=== PATIENT | female | born 1960 | race Two or more races ===

== ENCOUNTER 2016-11-23 16:10 | Emergency (ER) | payer MEDICARE, MEDICAID ==
[~2016-11-23 16:10] MED LIST: ATACAND HCT GT; BENICAR HCT 201 EACH PO; BENICAR20 MG PO; CLOBETASOL 0.0560 GM TP; CORRECTOL5 M2 PO; CYCLOBENZAPRINE10 M1 PO; CYCLOBENZAPRINE5 M1 PO; DIAZEPAM10 MG PO; EYE DROPS15 M3 OP; FLOVENT HFA1 PUF1 INH; GLIPIZIDE10 M2 PO; GLIPIZIDE5 MG PO; GLUCOTROL XL10 M1 PO; GUAIFEN-CODEIN120 ML PO; MELATONIN3 M4 PO; PERCOCET 5MG/AP1 TAB PO; PRILOSEC20 M1 PO; PROTONIX40 MG PO; Q VAR; SIMVASTATIN40 MG PO; SINGULAIR10 MG PO; TAMIFLU75 MG/CAP NG; TRADJENTA5 M1 PO; TRAMADOL HCL50 M2 PO; ULTRAM50 M1 PO; VITAMIN D400 UNI3 PO; VITAMIN D400 UNI4 PO; XELJANZ5 MG PO; ZANTAC150 MG PO; ZITHROMAX250 M1 PO
[2016-11-23] MEDS ORDERED: HYDROCODON-ACE1 EA16 PO (17:57)
[2017-04-27] MEDS ORDERED: VENTOLIN HFA18 G2 PO (00:35)
[2017-04-27] MEDS ORDERED: TRAMADOL HCL50 M2 PO (01:13)
[2017-04-29] MEDS ORDERED: NORCO 5-325 TA1 EACH PO (00:46)
[2017-05-15] MEDS ORDERED: GUAIFENESIN-COD10 ML PO (20:46)
[2017-05-15] MEDS ORDERED: ZOFRAN4 M2 PO (20:50)
[2017-06-09] MEDS ORDERED: NORCO 5/3251 TAB PO (00:11)
== END 2016-11-23 18:12 ==
LOC: EDMED 16:10
PROC: 2W3CXYZ Immobilization of Right Lower Arm using Other Device (ICD-10-PCS; principal; 2016-11-23)
DX: S46.911A Strain of unspecified muscle, fascia and tendon at shoulder and upper arm level, right arm, initial encounter (principal); S66.911A Strain of unspecified muscle, fascia and tendon at wrist and hand level, right hand, initial encounter; S39.012A Strain of muscle, fascia and tendon of lower back, initial encounter; S70.01XA Contusion of right hip, initial encounter; M06.9 Rheumatoid arthritis, unspecified; W17.89XA Other fall from one level to another, initial encounter; Y92.481 Parking lot as the place of occurrence of the external cause

== ENCOUNTER 2016-12-28 00:32 | Observation (INO) | payer MEDICARE, MEDICAID ==
[~2016-12-28 00:32] MED LIST changes: +HYDROCODON-ACE1 EA16 PO
[2016-12-28] MEDS ORDERED: PULMICORT FLEX90 MCG INH (00:48)
[2016-12-28] MEDS ORDERED: ORPHENADRINE C100 M1 PO (00:50)
[2016-12-28] MEDS ORDERED: OMEPRAZOLE20 M3 PO (00:50)
[2016-12-28 01:45] LABS: BASO % 0.2 % (0-2); EOS % 1.6 % (0-7); EOSINOPHIL ABSOLUTE COUNT 0.2 tho/cmm (0.0-0.7); HCT-HEMATOCRIT 35.3 % (34.0-49.0); HGB-HEMOGLOBIN 11.3 gm/dl (12.0-15.5); IMMATURE GRANULOCYTES ABSOLUTE 0.05 tho/cmm (0-0.03); IMMATURE GRANULOCYTES PERCENT 0.5 % (0-0.3); LYMPH % 27.7 % (20-45); MCH (MEAN CORPUSCULAR HGB) 26.4 pg (28.0-32.0); MCV (MEAN CELL VOLUME) 82.5 fl (82.0-96.0); MEAN PLATELET VOLUME 9.4 cmc (9.4-12.4); MONO % 4.7 % (0-12); MONOCYTE ABSOLUTE COUNT 0.5 tho/cmm (0.0-1.2); NEUTROPHIL ABSOLUTE COUNT 7.1 tho/cmm (1.6-8.0); NEUTROPHIL-AUTOMATED 7.1 tho/cmm (1.6-8.0); NEUTROPHILS % 65.3 % (40-80); PLATELET COUNT 297 tho/cmm (150-450); RED BLOOD COUNT 4.28 mil/cmm (4.00-5.20); RED CELL DISTRIBUTION WIDTH 14.1 % (12.4-16.4); WHITE BLOOD COUNT 10.8 tho/cmm (4.0-10.0)
[2016-12-28 02:01] LABS: ALB/GLOB RATIO 0.8 (0.8-2.0); ALBUMIN 3.2 g/dl (3.5-5.0); ALKALINE PHOSPHATASE 75 U/L (33-138); ALT/SGPT 23 U/L (12-78); ANION GAP 9 mmol/L (0-20); AST/SGOT 16 U/L (10-40); BILIRUBIN,TOTAL 0.3 mg/dl (0-1.5); BLOOD UREA NITROGEN 15 mg/dl (6-24); CALCIUM 8.2 mg/dl (8.5-10.5); CARBON DIOXIDE-VENOUS 28 mmol/L (22-32); CHLORIDE 108 mmol/l (96-110); CREATININE 0.72 mg/dl (0.50-1.10); GLUCOSE 141 mg/dL (70-110); POTASSIUM 3.9 mmol/L (3.7-5.1); SODIUM 141 mmol/L (135-145); eGFR VALUE FOR BLACK >90 mL/Min
[2016-12-28 05:40] LABS: CHOLESTEROL 132 mg/dl (120-200); HDL CHOLESTEROL 40 mg/dl (40-60); LDL CHOLESTEROL 68 mg/dl (0-99); TRIGLYCERIDES 123 mg/dl (<149); VLDL 25 mg/dl (0-30)
[2016-12-28] MEDS ORDERED: VOLTAREN100 G1 TOP (10:58)
--- NOTE | 2016-12-28 11:40 | NUR ---
VIRTUAL CARE NOTE: PT RESTING ON BED, C/O CRAMPING ON LEGS WANTS PAIN TX, VN PAGED TO FLOOR NRUSE FOR PAIN TX. PT ALSO WANTS TO EAT (NPO CURRENTLY) WILL WAIT FOR MD TO ROUND TO SEE IF OK TO RESUME DIET. PLAN OF CARE REVIEWED, PT HAS NO FURTHER QUESTIONS AT THIS TIME.
[2016-12-28] MEDS ORDERED: COZAAR25 M1 PO (17:41)
[2016-12-28] MEDS ORDERED: HYDROCHLOROTH12.5 M2 PO (17:42)
[2016-12-28] MEDS ORDERED: PROVENTIL HFA6.7 G1 INH (17:42)
[2016-12-28] MEDS ORDERED: STOP HOME MEDICATION (17:46)
--- NOTE | 2016-12-28 18:10 | NUR ---
VIRTUAL CARE NOTE: PT DRESSED READY FOR DISCHARGE INSTRUCTIONS. INFORMATION GIVEN TO PT, QUESTIONS ANSWERED. PT SAID HE ALREADY HAS AN APPT WITH A DOCTOR AT [facility] ON January THAT SHE JUST SET IT UP, SO PT DOES NOT NEED TO CALL 'S OFFICE TO ESTABLISH PRIMARY CARE. INFORMED FLOOR NURSE DC TEACHING DONE.
[2017-04-27] MEDS ORDERED: VENTOLIN HFA18 G2 PO (00:35)
[2017-04-27] MEDS ORDERED: TRAMADOL HCL50 M2 PO (01:13)
[2017-04-29] MEDS ORDERED: NORCO 5-325 TA1 EACH PO (00:46)
[2017-05-15] MEDS ORDERED: GUAIFENESIN-COD10 ML PO (20:46)
[2017-05-15] MEDS ORDERED: ZOFRAN4 M2 PO (20:50)
[2017-06-09] MEDS ORDERED: NORCO 5/3251 TAB PO (00:11)
== END 2016-12-28 18:30 ==
LOC: EDMED 00:32 → EMR2 04:19 → 5WD 05:05
PROVIDERS: Physician Assistant; ADMIT Internal Medicine Cardiovascular Disease
DX: R07.9 Chest pain, unspecified (principal); I10 Essential (primary) hypertension; R06.00 Dyspnea, unspecified; E11.9 Type 2 diabetes mellitus without complications; K21.9 Gastro-esophageal reflux disease without esophagitis; J45.909 Unspecified asthma, uncomplicated; E78.5 Hyperlipidemia, unspecified; M06.9 Rheumatoid arthritis, unspecified; R42 Dizziness and giddiness; Z88.0 Allergy status to penicillin; Z88.6 Allergy status to analgesic agent; Z88.8 Allergy status to other drugs, medicaments and biological substances; Z79.899 Other long term (current) drug therapy
CPT/HCPCS: A9500; G0378; J2785; J7030; Q9967

== ENCOUNTER 2017-01-17 23:07 | Emergency (ER) | payer MEDICARE, MEDICAID ==
[~2017-01-17 23:07] MED LIST changes: +COZAAR25 M1 PO; +HYDROCHLOROTH12.5 M2 PO; +OMEPRAZOLE20 M3 PO; +ORPHENADRINE C100 M1 PO; +PROVENTIL HFA6.7 G1 INH; +PULMICORT FLEX90 MCG INH; +STOP HOME MEDICATION; +VOLTAREN100 G1 TOP
[2017-04-27] MEDS ORDERED: VENTOLIN HFA18 G2 PO (00:35)
[2017-04-27] MEDS ORDERED: TRAMADOL HCL50 M2 PO (01:13)
[2017-04-29] MEDS ORDERED: NORCO 5-325 TA1 EACH PO (00:46)
[2017-05-15] MEDS ORDERED: GUAIFENESIN-COD10 ML PO (20:46)
[2017-05-15] MEDS ORDERED: ZOFRAN4 M2 PO (20:50)
[2017-06-09] MEDS ORDERED: NORCO 5/3251 TAB PO (00:11)
== END 2017-01-18 00:01 | disposition left against medical advice (07) ==
LOC: EDMED 23:07
DX: M25.531 Pain in right wrist (principal); Z53.21 Procedure and treatment not carried out due to patient leaving prior to being seen by health care provider

== ENCOUNTER 2017-05-23 19:30 | Emergency (ER) | payer MEDICARE, MEDICAID ==
[~2017-05-23] VITALS: Ht 157.5 cm; Wt 108.0 kg
[~2017-05-23 19:30] MED LIST changes: +GUAIFENESIN-COD10 ML PO; +NORCO 5-325 TA1 EACH PO; +VENTOLIN HFA18 G2 PO; +ZOFRAN4 M2 PO
[2017-05-23] MEDS ORDERED: ULTRAM50 M1 PO (20:52)
[2017-05-23 21:51] LABS: BASO % 0.2 % (0-2); EOS % 2.3 % (0-7); EOSINOPHIL ABSOLUTE COUNT 0.2 tho/cmm (0.0-0.7); HCT-HEMATOCRIT 39.3 % (34.0-49.0); HGB-HEMOGLOBIN 12.9 gm/dl (12.0-15.5); IMMATURE GRANULOCYTES ABSOLUTE 0.04 tho/cmm (0-0.03); IMMATURE GRANULOCYTES PERCENT 0.5 % (0-0.3); LYMPH ABSOLUTE COUNT 2.3 tho/cmm (0.8-4.5); MCH (MEAN CORPUSCULAR HGB) 26.3 pg (28.0-32.0); MCHC MEAN CORPUSCULAR HGB CONC 32.8 % (32.0-36.0); MONO % 3.5 % (0-12); MONOCYTE ABSOLUTE COUNT 0.3 tho/cmm (0.0-1.2); NEUTROPHIL ABSOLUTE COUNT 5.7 tho/cmm (1.6-8.0); NEUTROPHIL-AUTOMATED 5.7 tho/cmm (1.6-8.0); NEUTROPHILS % 66.5 % (40-80); PLATELET COUNT 338 tho/cmm (150-450); RED BLOOD COUNT 4.91 mil/cmm (4.00-5.20); RED CELL DISTRIBUTION WIDTH 14.3 % (12.4-16.4); WHITE BLOOD COUNT 8.6 tho/cmm (4.0-10.0)
[2017-05-23 21:56] LABS: INR 0.9 INR (0.9-1.1); PROTHROMBIN TIME 10.6 SECONDS (9.0-13.6)
[2017-05-23 22:35] LABS: ALB/GLOB RATIO 0.7 (0.8-2.0); ALKALINE PHOSPHATASE 112 U/L (33-138); ALT/SGPT 22 U/L (12-78); ANION GAP 9 mmol/L (0-20); AST/SGOT 16 U/L (10-40); BILIRUBIN,TOTAL 0.2 mg/dl (0-1.5); BLOOD UREA NITROGEN 10 mg/dl (6-24); CALCIUM 8.4 mg/dl (8.5-10.5); CARBON DIOXIDE-VENOUS 29 mmol/L (22-32); CHLORIDE 103 mmol/l (96-110); CREATININE 1.03 mg/dl (0.50-1.10); GLUCOSE 379 mg/dL (70-110); POTASSIUM 3.8 mmol/L (3.7-5.1); SODIUM 137 mmol/L (135-145); eGFR VALUE FOR BLACK 70 mL/Min
[2017-05-23] MEDS ORDERED: NORCO 5-325 TA1 EACH PO (22:52)
[2017-05-23] MEDS ORDERED: AZITHROMYCIN250 M1 PO (22:52)
[2017-05-23] MEDS ORDERED: TESSALON PERLE100 M1 PO (22:52)
== END 2017-05-23 23:09 ==
LOC: EDMED 19:30
PROVIDERS: Emergency Medicine
DX: R05 Cough (principal); E11.40 Type 2 diabetes mellitus with diabetic neuropathy, unspecified; M06.9 Rheumatoid arthritis, unspecified; E78.5 Hyperlipidemia, unspecified; Z87.891 Personal history of nicotine dependence; Z79.899 Other long term (current) drug therapy